=== PATIENT | male | born 1980 | race Caucasian/White ===

== ENCOUNTER 2025-01-28 16:35 | Outpatient (CLI) | payer BC, SELFPAY ==
--- NOTE | ~2025-01-28 | CT_ITS ---
EXAMINATION: CT abdomen wo con DATE: 01/28/2025 17:33 INDICATION: K43.9 - Ventral hernia without obstruction or gangrene TECHNIQUE: Computed tomography (CT) of the abdomen was performed without intravenous contrast. Automa abdoulaye exposure control and iterative reconstruction technique were employed. The dose-length product wa s 526.96 mGy-cm. COMPARISON: None. FINDINGS: Lower thorax: Mild bilateral gynecomastia. Enlarged heart. Liver: Normal. Biliary/Gallbladder: The gallbladder is partially contracted. No bile duct dilation. Pancreas: No mass or duct dilation. Spleen: Normal. Adrenals:No mass. Kidneys: No suspicious mass, obstructing stone, or hydronephrosis. GI tract: No small or large bowel dilation. Partially visualized, normal-appearing appendix. Mesentery/Peritoneum: No ascites, mass, or free air. Retroperitoneum: No mass. Atherosclerotic calcifications of intra-abdominal arterial vessels. Soft Tissues: Moderate sized fat-containing supraumbilical ventral hernia measuring up to 6.0 cm, wit h a 1.5 cm neck. No inflammatory change or fluid. Bones: No acute osseous finding. IMPRESSION: Cardiomegaly. Uncomplicated appearing 6.0 cm supraumbilical fat-containing ventral hernia. Reviewed, dictated and finalized at location K.
== END 2025-01-28 16:36 | disposition home or self-care (01) ==
PROVIDERS: PCP Nurse Practitioner Family; Visit Provider Surgery
DX: K43.9 Ventral hernia without obstruction or gangrene (principal); I51.7 Cardiomegaly
CPT/HCPCS: 74150

== ENCOUNTER 2025-05-31 08:11 | Outpatient (CLI) | payer BC, SELFPAY ==
--- OUTSIDE RECORDS SUMMARY | 2020-12-26 09:37 | XMS_ITS | Continuity of Care Document ---
Author Organization [facility] Address [address] [place] [address] Phone Care Team Providers Care Setter [employer] Name Role Phone Hussein KORYTrinity Unavailable Unavailable Allergies, Adverse Reactions, Alerts Substance Reaction Status Criticality No Known Drug Allergies Active No I nformation Medications Medication Instructions Dosage Effective Dates (start - stop) Status Comments metformin ER 500 mg tablet,extended release 24 hr take 2 tablet by oral route 2 times daily with a meal - Active Jardiance 25 mg tablet take 1 tablet by oral route every day in the morning 25 MG - Active test strips MISCELL ADH. PATCH use to check bs bid - Active lancets take 1 by Injection route 2 times every day to test blood sugar before meals and at bedtime 1 - Active glucometer MISCELL MISCELL use to check bs bid and prn - Active Alcohol Prep Pads inhale 1 pad by Topical route 2 times every day to cleanse skin 1 pad - Active metformin ER 1,000 mg tablet,extended release 24hr take 1 tablet by oral route every day with the evening meal 1000 MG - No Longer Active Procedures Procedure Date OFFICE/OUTPATIENT VISIT, EST PREV VISIT, EST, AGE 18-39 OFFICE/OUTPATIENT VISIT, EST OFFICE/OUTPATIENT VISIT, NEW Advance Directives Directive Yes / No Effective Date File Name No Information Encounters Encounter Description Practice Location Reason(s) For Visit Diagnoses Date Provider Providers Copied on Encounter [facility], [address] [place], [address], [place] tel:[phone] *[facility] No Information 1 Hussein Trinity. [address], [place], [facility], [place]. tel:[phone] OFFICE/OUTPA TIENT VISIT, [facility], [address] [place], [address], tel:[phone] *[facility] chronic conditions (chief complaint)c hronic conditions (chief complaint) Type 2 diabetes mellitus without complicationsOther fdc (current) drug therapyBody mass index [BMI] 31.0-31.9, adultScreening cholesterol level 1 Hussein Trinity. [address], [place], [facility], [place]. tel:[phone] [facility] 18-39 [facility], [address], [place], [facility], [place] tel:[phone] *[facility] Preventive exam (chief complaint)E stablish Care (chief complaint) Ventral hernia without obstruction or gangrene 0 Hussein Trinity. [address], [place], [facility], [place]. tel:[phone] OFFICE/OUTPA TIENT VISIT, [facility], [address] [place], [address], [place] tel:[phone] *[facility] Follow Up of bite(s) (chief complaint) No Information 4 Declue Digna. [address], [place], [facility], [place]. tel: [phone] OFFICE/OUTPA TIENT VISIT, [facility], [address] [place], [address], [place] tel:[phone] *[facility] wound (chief complaint) No Information 4 Declue Digna. [address], [place], [facility], [place]. tel:[phone] Family History Family Member Type Diagnosis Age At Onset Mother Problem Diabetes mellitus grandparents Problem (finding) stroke Father Problem coronary arteriosclerosis Father Problem Diabetes mellitus Problem (finding) Family history of Diabe leif mellitus Mother Problem hypertension Payers Payer name Insurance type Covered republican ID Authoriza tion(s) No Information Social History Type Description Quantity Date Captured Comments Sex Male Smoking Status No Information Chief Complaint And Reason For Visit No Information Reason For Referral Reason For Referral No Information Plan Of Treatment Date Type Action Status Goal Dietary manageme nt education, guidance, and counseling completed Goal Dietary manageme nt education, guidance, and counseling completed Referral Referred To: NIKO MARS Ordered: Referrals: Allopathic & Osteopathic Physicians : Surgery. NIOK MARS. Location: [facility] [address] Evaluate and treat ordered Future Order: Lab Order CBC w/AU TO DIFF ([id number]), Sent on: Sent Future Order: Lab Order COMPREHE NSIVE METABOLIC PANEL ([id number]), Sent on: Sent Future Order: Lab Order GLYCOHEM OGLOBIN (A1c) ([id number]), Sent on: Sent Future Order: Lab Order THYROID STIMULATING HORMONE ([id number]), Sent on: Sent Future Order: Lab Order RANDOM U A MICROALBUMIN/CREATININE RATIO ([id number]), Sent on: Sent Future Order: Lab Order LIPID PA BENJIE ([id number]), Sent on: Sent History Of Present Illness Encounter Date Complaint History Of Prese nt Illness chronic conditions 1) Type 2 valentino betes mellitus without complications (onset 12/18/2020; [place]. Patient states would like medication changed, metformin gives him diarrhea.) 2) Unspecified abdominal hernia with gangrene (onset 12/18/2020; [place].) 3) Other long term care administrator (current) drug therapy (onset 12/18/2020; [place].) chronic conditions *See Chronic Conditions HPI Preventive exam Men's preventive visit. Patient Health Questionnaire (PHQ-2) is negative. Patient is on a healthy diet. Marital status: legally . Relevant history is positive for alcohol use. Relevant history is negative for tobacco use, passive smoke exposure, passive vaping exposure. Establish Care Follow Up of bite(s) This is a f ollow up visit. A trauma occurred (dog bite). Previous diagnostic studies and/or treatments that have been performed/administered include sutures. The injury is aggravated by local pressure. Interventions the patient has tried have not provided any relief. The injury is associated with localized swelling. wound This is an initi al visit. The injury occurred 1 week ago. Symptoms related to the wound remain unchanged. A trauma occurred (dog bite). The injury is aggravated by local pressure. Interventions the patient has tried have not provided any relief. The injury is associated with localized swelling and drainage - yellow. The patient denies any chills or fever. Additional information: went to er and got sutures 5 in 2 fingers, on antibiotic, but took last dose yesterday, changes dressing every day and uses ASIYA on wound. Functional Status Date Functional Assessmen t No Information Instructions Date Instruction Additional Infor erikion Encourage patient to continue to follow low carbohydrate diet. Report any changes or injury to feet and monitor sores due to slow healing. Follow medication regimen as prescribed and avoid skipping doses. Remember to see auto body straightener yearly for an eye exam. Record blood sugars and bring log to next visit. Exercise 3-5 days per week as tolerated. Report any changes in condition. unable to tolerate metformin. advised to try taking one at bedtime. add jardiance. labs in 3 months. Related to Type 2 diabetes mellitus without complications Dietary management e ducation, guidance, and counseling Related to Body mass index [BMI] 31.0-31.9, adult start metformin. wesley ck bs bid. f/u in 3 months. Related to Type 2 diabetes mellitus without complication, without long-term current use of insulin Dietary management e ducation, guidance, and counseling Related to Body mass index (BMI) 30.0-30.9, adult Dietary counseling Related to Ob esity unspecified, BMI 30-39 Dietary counseling Related to Ob esity unspecified, BMI 30-39 Assessments Type Assessment Date No Information Patient Care Teams Name Effective Dates (start - stop) Status Members No Information
--- NOTE | 2025-05-31 08:24 | ECG_ITS ---
Test Date: 2025-05-31 08:36:09 Measurements Intervals [place] Rate: 76 P: 52 [place]: 172 QRS: 17 QRSD: 93 T: 14 QT: 347 QTc: 392 Interpretive Statements SINUS RHYTHM WARNING: DATA QUALITY MAY AFFECT INTERPRETATION No previous ECG available for comparison Electronically Signed On 05-31-2025 15:37:40 CDT by Samir Meza M.D.
[2025-05-31 09:00] LABS: Anion Gap 7 mmol/L (4-12); Blood Urea Nitrogen 15 mg/dL (9-20); Calcium 8.7 mg/dL (8.4-10.2); Carbon Dioxide 26 mmol/L (22-30); Chloride 103 mmol/L (98-107); Estimated Glomerular Filt Rate > 60; Glucose 146 mg/dL (65-110); Potassium 4.5 mmol/L (3.4-5.0); Sodium 136 mmol/L (137-145)
== END 2025-05-31 08:12 | disposition home or self-care (01) ==
LOC: ANHSURGERY 08:18
PROVIDERS: Anesthesiology; PCP Nurse Practitioner Family; Visit Provider Surgery
DX: K43.9 Ventral hernia without obstruction or gangrene (principal); E11.9 Type 2 diabetes mellitus without complications; I10 Essential (primary) hypertension
CPT/HCPCS: 36415; 80048; 86850; 86900; 86901; 93005

== ENCOUNTER 2025-06-03 03:20 | Day surgery (SDC) | payer BC, SELFPAY ==
[2025-05-27 13:39] VITALS: BMI 31.9
--- NOTE | 2025-05-27 13:45 | PC.NURSE ---
Spoke with patient who gave us permission to discuss protected health information with his Umm. Report to the Outpatient Waiting Room, entrance under the green pavilion located off [facility], at time _0700_ on date _[id number]_. Planned Procedure Time: _0900_.? Time changes happen often and if your time is changed the preop area will call you the afternoon before. - You and your visitor will be asked to self-screen and do not enter if you have any COVID symptoms. Please call surgeon if you need to reschedule. - A mask is optional within the hospital at this time. Patients may have clear liquids (water, carbonated beverages, clear teas, apple juice) until 3 hours prior to surgery with a maximum of 20 ounces. - No food from midnight until time of surgery and no smoking, or chewing tobacco (or any form of nicotine). No chewing gum, candy or mints. Take only the following medications with a SIP of water on the morning of surgery: __None___ DO NOT STOP ANY OF YOUR OTHER PRESCRIPTION MEDICATIONS PRIOR TO SURGERY EXCEPT THE FOLLOWING Hold all vitamins and supplements for 3 days per anesthesiologist. Medications to discontinue per physician Date to take last dose Please no make-up, nail macedonian, hairspray, perfume, deodorant, or body powder the day of surgery.? No jewelry (including any body piercings) or valuables the day of surgery, leave them at home.? Please take a shower or bath the night before, or the morning of, surgery with an antibacterial soap.? Wear comfortable, loose fitting clothing.? - Jewelry must be removed prior to entering the operating room.? Rings and piercings that are not removed may be cut off. - The hospital will not accept responsibility for valuables.? - Please leave all valuables, including medications, at home the day of surgery. If you are going home after surgery, a licensed route delivery driver must drive you home.? - NO public transportation without another adult if you receive anesthesia. - We recommend that an adult stay with you for 24 hours following discharge. - We also recommend that you do not drive, make important decision, drink alcoholic beverages, or take any drugs that were not prescribed by your health care provider for at least 24 hours after your discharge time. Follow any additional instructions given to you from your surgeon. Telephone instructions given to __Ashley/wife___and asked if any additional questions and then verbalized understanding. Patient advised to call surgeon office or pre surgery nurse liaison [phone] if any additional questions.
[2025-06-03] VITALS (11 sets, daily range): BP systolic 116–153; BP diastolic 76–93; PULSE 82–101; RESP 14–20; TEMP 36.6; O2SAT 94–100; BMI 29.9
[2025-06-03] MEDS: KETOROLAC 15 MG/ML VIAL (*BKC) IV PUSH (08:00)
[2025-06-03] MEDS: ACETAMINOPHEN 500 MG TABLET 1000 MG PO (08:00)
[2025-06-03] MEDS: LACTATED RINGERS 1,000 ML 30 ML IV CONT ×2 (08:00→11:32)
--- NOTE | 2025-06-03 08:32 | WPDANESEPPF ---
Anes - Initial Pre Proc Eval Procedure: Operation Date: 06/03/25 09:00 Proposed Procedures p Robotic Assisted Ventral Hernia Repair with Mesh - Jeanette Good MD Date/Time: 06/03/25 08:32 Surgeon: Jeanette Good MD Pre Op Diagnosis: ventral hernia Patient Data Age: 44 Gender: M Height: 1.83 m Weight: 100.2 kg Last Vital Signs Temp 97.9 F 06/03/25 08:10 Pulse 88 06/03/25 08:10 BP 121/83 06/03/25 08:10 Pulse Ox 100 06/03/25 08:10 O2 Del Method Room Air 06/03/25 08:10 Allergies Allergy/AdvReac Type Severity Reaction Status Date / Time No Known Allergies Allergy Verified 05/27/25 13:36 Home Medications ?Medication ?Instructions ?Recorded ?Confirmed ?Type glipizide 5 mg tablet, extended 5 mg PO DAILY #90 tabs 08/03/24 05/27/25 Rx release 24 hr metformin 500 mg tablet 500 mg PO BID #180 tabs 08/28/24 05/27/25 Rx semaglutide 2 mg/dose (8 mg/3 mL) 2 mg (0.75 mL) subcut WEEKLY #9 mL 12/21/24 05/27/25 Rx subcutaneous pen injector (Ozempic) lisinopril 20 mg tablet 20 mg PO DAILY #90 tabs 01/07/25 05/27/25 Rx multivit,calcium,min-folic acid tablet PO DAILY 05/27/25 History 240 mcg-D3 25 mcg-lycop 300 mcg tablet (One A Day Men Complete) Laboratory Tests 06/03/25 07:56 POC Capillary Glucose 211 H mg/dl (65-105) Patient hx anesthesia problems: none Family hx anesthesia problems: none Results Review: All pre-operative results and documents have been reviewed as part of the pre-operative evaluation. [facility] Past Medical History Medical History Family history of blood coagulation disorder Retinopathy due to secondary diabetes Paresthesia of upper limb Hypertension Hyperlipidemia Diabetes Surgical History Surgical History History of hip surgery H/O umbilical hernia repair Family History Family History Father Acute myocardial infarction Heart disease Mother Diabetes mellitus Cancer Social History Social History Social History: 12/21/24 somewhat confident with medical forms Smoking status: Never smoker Alcohol intake: current Drinks per week: 5 Substance use: never Do You Feel Safe in your Home?: Yes Lack of Transportation: No Lack of Food: Never True Current Housing: I Have Housing Concerned About Future Housing: No Difficulty Paying Gas/Electric Bills: No Difficulty Paying for Meds: No Currently Unemployed: No Education: High School Diploma/GED Difficulty w/ Childcare or Family Care: No Living arrangements: with family Occupation/Education: occupation Additional occupation/education comments: [employer] Spiritual care concerns: No Agree to blood products: Yes Anes - Eval Final PreProcedure Day of Procedure 06/03/25 08:32 Patient weight: obese Lungs: normal air movement Airway: Mallampati scale class II and special considerations (L upper tooth missing. ) Neurological: alert and oriented Last oral intake: >/= 8 hours ASA classification: III Emergent: no Anesthetic plan: proceed Anesthesia type and monitoring: general ETT and standard monitoring Results Review: All pre-operative results and documents have been reviewed as part of the pre-operative evaluation. HTN, hyperlipidemia, DM fsbs 211, BMI 30, off GLP1 for 7 days. Informed Consent: The patient's anesthetic plan and its attendant risks and benefits were discussed with the patient/family/POA. Questions were solicited and answers provided to the satisfaction of the patient/family/POA.
--- NOTE | 2025-06-03 08:46 | PM.IMHP ---
H&P: [facility] History of Present Illness Date/Time: 06/03/25 08:46 Chief Complaint: supraumbilical ventral hernia Narrative: Pt is a 44 y/o M c large supraumbilical ventral hernia. Pt reports he has noticed this over the last year or so. Pt states area seems to be slowly enlarging. Pt reports increased pressure/pain jaret c exertion. Pt denies any obstructive sx. Review of Systems Review of Systems: All systems reviewed & are unremarkable except as noted in HPI and below PMFSH Past Medical History Medical History Family history of blood coagulation disorder Retinopathy due to secondary diabetes Paresthesia of upper limb Hypertension Hyperlipidemia Diabetes Surgical History Surgical History History of hip surgery H/O umbilical hernia repair Family History Family History Father Acute myocardial infarction Heart disease Mother Diabetes mellitus Cancer Social History Social History Social History: 12/21/24 somewhat confident with medical forms Smoking status: Never smoker Alcohol intake: current Drinks per week: 5 Substance use: never Do You Feel Safe in your Home?: Yes Lack of Transportation: No Lack of Food: Never True Current Housing: I Have Housing Concerned About Future Housing: No Difficulty Paying Gas/Electric Bills: No Difficulty Paying for Meds: No Currently Unemployed: No Education: High School Diploma/GED Difficulty w/ Childcare or Family Care: No Living arrangements: with family Occupation/Education: occupation Additional occupation/education comments: [employer] Spiritual care concerns: No Agree to blood products: Yes Meds Home Medications and Allergies Home Medications ?Medication ?Instructions ?Recorded ?Confirmed ?Type glipizide 5 mg tablet, extended 5 mg PO DAILY #90 tabs 08/03/24 05/27/25 Rx release 24 hr metformin 500 mg tablet 500 mg PO BID #180 tabs 08/28/24 05/27/25 Rx semaglutide 2 mg/dose (8 mg/3 mL) 2 mg (0.75 mL) subcut WEEKLY #9 mL 12/21/24 05/27/25 Rx subcutaneous pen injector (Ozempic) lisinopril 20 mg tablet 20 mg PO DAILY #90 tabs 01/07/25 05/27/25 Rx multivit,calcium,min-folic acid tablet PO DAILY 05/27/25 History 240 mcg-D3 25 mcg-lycop 300 mcg tablet (One A Day Men Complete) Allergies Allergy/AdvReac Type Severity Reaction Status Date / Time No Known Allergies Allergy Verified 05/27/25 13:36 Vital Signs Vital Signs - 24 hr 06/03/25 08:10 Temperature 36.6 C Pulse Rate 88 Blood Pressure 121/83 Pulse Oximetry 100 Oxygen Delivery Room Air Exam Const: General: cooperative, comfortable and no acute distress Resp: Auscultation: clear to auscultation bilaterally Cardio: Rate: regular rate Rhythm: regular rhythm GI: Inspection: normal to inspection, non-distended and visible herniation GI Palp: No abdominal tenderness, Yes Soft to palpation and Yes Hernia present Other: 6 cm supraumbilical ventral hernia Assessment and Plan Assessment and plan (1) Ventral hernia: Qualifiers: Obstruction and gangrene presence: without obstruction or gangrene Qualified Code(s): K43.9 - Ventral hernia without obstruction or gangrene Code(s): K43.9 - Ventral hernia without obstruction or gangrene Status: Acute Assessment and Plan: will setup for robotic assisted repair c mesh
--- NOTE | 2025-06-03 08:50 | WPDHPUPDATE1 ---
History and Physical Update Update Date/Time: 06/03/25 08:50 History and Physical has been reviewed, including an updated exam of the patient. There are NO changes in the patient's condition. Risks, benefits, and alternatives have been discussed and questions answered. Patient agrees to proceed with procedure.
[2025-06-03] MEDS: ceFAZolin 2 GM in SODIUM CHLORIDE 0.9% IV 50 ML 100 ML IVPB (08:55)
[2025-06-03] MEDS: BUPIVACAINE/EPINEPHRINE 0.5% 50 ML VIAL 30 ML INFILTRATE (09:31)
--- NOTE | 2025-06-03 11:33 | W.PM.PROC2 ---
Procedure Note - Detailed Date of Procedure 06/03/25 Pre-op Diagnosis incarcerated ventral hernia with defect measuring approximately 5 cm Post-op Diagnosis Same Procedure Performed repair of incarcerated ventral hernia measuring approximately 5 cm with mesh, myofascial release x2 Surgeon Jeanette Good MD Crayon Grader MD Uriah Anesthesia General and Local Indications 44-year-old male presenting to the office with a large supraumbilical ventral hernia. CT scan and exam significant incarcerated supraumbilical ventral hernia. Findings Incarcerated supraumbilical ventral hernia with omentum Description of Procedure The patient was taken to the operating room and placed in the supine position. After adequate induction of general anesthesia, the patient was prepped and draped in the normal sterile fashion. A time-out was then done to verify the patient's identity, as well as the procedure being performed. I began by placing a 8 mm port in the left upper quadrant, this was done via the Optiview trocar under direct visualization. Once in the intra-abdominal cavity, the abdomen was insufflated with CO2 gas. After adequate pneumoperitoneum was achieved, the camera was placed into this trocar site and the abdomen was examined. There was noted to be an incarcerated supraumbilical ventral hernia with noted omentum within the hernia. Under direct visualization, I placed a further 8 mm left mid abdominal port, as well as a 12 mm left lower abdominal port. The patient was then positioned and the robot was docked to these trocar sites. I then scrubbed out and proceeded with the surgery at the robotic console. I began by reducing the incarcerated omentum out of this hernia. This was done carefully with gentle traction and manual exterior pressure. At this point I measured 6 cm lateral to the hernia defect. I then gained access by making a flap into the left retro muscular space. The 1st myofascial release was started with the posterior rectus sheath released off the left rectus muscle. This dissection was performed all the way to the medial edge rectus muscle, the dissection was continued from the costal margin into the space Retzius. The upper medial aspect of the posterior sheath was then incised and we entered the preperitoneal space and transitioned to the contralateral retro muscular space. This was difficult and my partner Dr. Kruse was present and assisted with the crossover portion as well as the contralateral myofascial release. This was done in order to continue the repair and improved the medialization of the anterior rectus sheath for the purpose reconstruction of the linea alba. The contralateral posterior rectus sheath was dissected and released off the right rectus muscle. This was done to the semilunaris and the neurovascular bundles were identified and preserved. The retro muscular space was dissected cranial and caudal to the hernia defect matching ipsilateral side. I then dissected the incarcerated preperitoneal fat from the umbilical hernia defect. All contents were reduced leaving a approximately 5 cm defect. The patient also had significant diastasis in addition to the umbilical defect. The aforementioned bilateral myofascial release allowed myofascial medial sedation for the purpose of roman catholic of the linea alba. I then closed the 5 cm defect with 0 Stratafix suture. The linea alba was restored using a Stratafix suture in a plicating method, effectively eliminating the diastasis. A 15 x 20 piece of Synecor mesh was then placed in the retrorectus space. The mesh laid flat with no buckling. Once positioned it was noted to have good overlap of our hernia defect. I then closed the posterior rectus sheath flap using a 2 0 V lock suture. The 12 mm port site was closed under direct visualization using a 0 Vicryl stitch. The robot was then undocked and all ports were removed. All incisions were closed with 4-0 Monocryl subcuticular sutures. Dermabond was placed on all wounds. The patient tolerated the procedure well. He was extubated in the operating room postoperatively. He will be transferred to the recovery room in stable condition. Implants 15 x 20 cm piece of Synecor mesh in the retrorectus space Estimated Blood Loss 10 Complications No immediate complications Condition Stable Disposition PACU [facility] Billing Surgery - Charge Forward: Surgery Billing
[2025-06-03] MEDS: INSULIN HUMAN REGULAR (*BKC) 100 UNITS/ML SUB-Q (12:19)
[2025-06-03] MEDS: fentaNYL CITRATE INJ (*CRX) 100 MCG/2 ML VIAL 25 MCG IV PUSH ×4 (12:25→12:36)
[2025-06-03] MEDS: oxyCODONE HCL (*CRX) 5 MG TAB IR PO (13:02)
== END 2025-06-03 14:00 | disposition home or self-care (01) ==
PROVIDERS: PCP Nurse Practitioner Family; Visit Provider Surgery
PROC: (CPT 49594; principal; 2025-06-03 09:00)
DX: K43.6 Other and unspecified ventral hernia with obstruction, without gangrene (principal); E11.9 Type 2 diabetes mellitus without complications; I10 Essential (primary) hypertension; E78.5 Hyperlipidemia, unspecified; E66.9 Obesity, unspecified; Z68.30 Body mass index [BMI] 30.0-30.9, adult; Z79.84 Long term (current) use of oral hypoglycemic drugs; Z79.85 Long-term (current) use of injectable non-insulin antidiabetic drugs; Z98.890 Other specified postprocedural states; Z80.9 Family history of malignant neoplasm, unspecified; Z82.49 Family history of ischemic heart disease and other diseases of the circulatory system
CPT/HCPCS: 49594; 82948; J0690; A9270; C1781; J1100; J1171; J1815; J1885; J2003; J2250; J2405; J2704; J3010; J7120